=== PATIENT | female | born 1970 | race Caucasian/White ===

== ENCOUNTER 2021-04-17 13:24 | Emergency (ER) | payer OTHER ==
[~2021-04-17] VITALS: Ht 167.6 cm; Wt 80.4 kg
[2021-04-17 14:21] LABS: BILIRUBIN,URINE NEGATIVE (NEG); CLARITY,URINE CLEAR; COLOR,URINE YELLOW; NITRITE,URINE NEGATIVE (NEG); PH,URINE 6.5 (<5.0-8.0); PROTEIN,URINE NEGATIVE (NEG-TRACE)
[2021-04-17 14:33] LABS: BACTERIA,URINE FEW /HPF (0-FEW)
[2021-04-17] MEDS ORDERED: MORPHINE SULFATE 4 MG/ML VIAL. IV ONE (15:00)
[2021-04-17] MEDS ORDERED: ONDANSETRON PF 4 MG/2 ML VIAL. IVP ONE (15:00)
[2021-04-17 15:01] LABS: BASO % 0 % (0-3); EOS # 0.2 x10^3/uL (0.0-0.7); EOS % 2 % (0-3); HEMATOCRIT 40.7 % (36.0-47.0); HEMOGLOBIN 13.7 g/dL (12.0-15.5); LYMPH # 1.1 x10^3/uL (1.0-4.8); LYMPH % 14 % (24-48); MEAN CORPUSCULAR HEMOGLOBIN 30 pg (25-35); MEAN CORPUSCULAR HGB CONC 34 g/dL (31-37); MEAN CORPUSCULAR VOLUME 90 fL (79-100); MONO # 0.9 x10^3/uL (0.0-1.1); MONO % 12 % (0-9); NEUT # 5.6 x10^3/uL (1.8-7.7); NEUT % 71 % (31-73); PLATELET COUNT 244 x10^3/uL (140-400); RED BLOOD COUNT 4.52 x10^6/uL (3.50-5.40); RED CELL DISTRIBUTION WIDTH 13.9 % (11.5-14.5); WHITE BLOOD COUNT 7.9 x10^3/uL (4.0-11.0)
[2021-04-17 15:07] LABS: CALCIUM 8.5 mg/dL (8.5-10.1); CREATININE 0.8 mg/dL (0.6-1.0); GFR 75.9; POTASSIUM 3.9 mmol/L (3.5-5.1)
[2021-04-17 15:13] LABS: ALBUMIN 3.1 g/dL (3.4-5.0); ALBUMIN/GLOBULIN RATIO 0.8 (1.0-1.7); TOTAL BILIRUBIN 0.4 mg/dL (0.2-1.0); TOTAL PROTEIN 6.8 g/dL (6.4-8.2)
[2021-04-17] MEDS ORDERED: IOHEXOL 300 MG/ML 100ML VIAL. IV ONE (15:30)
[2021-04-17] MEDS ORDERED: CONTRAST GIVEN. MC PRN (15:30)
[2021-04-17] MEDS ORDERED: fentaNYL PF VIAL 100 MCG/2 ML VIAL IVP ONE ×3 (16:00→22:00)
--- NOTE | 2021-04-17 16:36 | RAD ---
Exam: CT abdomen/pelvis with intravenous contrast Indication: Abdominal pain Comparison: None Technique: Helical CT imaging performed of the abdomen and pelvis after the intravenous administratio n of 75 mL Omnipaque 300 contrast. Sagittal and coronal reformats were obtained. One or more of the following individualized dose reduction techniques were utilized for this examinat ion: 1. Automated exposure control 2. Adjustment of the mA and/or kV according to patient size 3. Use of iterative reconstruction technique. Findings: Lower chest: Lung bases are clear. Heart is normal in size. Liver: Normal. Gallbladder/Biliary Tree: Gallbladder surgically absent. Bile ducts are normal. Pancreas: Normal. Spleen: Normal. Adrenal Glands: Normal. Kidneys/Ureters/Bladder: Kidneys are normal in size and enhancement. No hydronephrosis. Ureters and b ladder are normal. Reproductive Organs: Uterus is surgically absent. No adnexal mass. Stomach, small bowel, and colon: There is a gastric lap band. The band appears either intragastric or intussuscepted along with the constricted portion of the stomach into the gastric fundus. There is n o definite free air around the stomach or gastric band. The proximal tubing extending from the band a ppears to course through a portion of the transverse colon (image [id number], series 2). Beyond this, ther e is soft tissue density extending along the tubing in the midabdomen (image [id number], series 2). There is a loop of small bowel immediately adjacent to the soft tissue abnormality in the right upper quadr ant that is abnormal in appearance with wall thickening and hypoattenuation (image 40-56 series 2 and image 38-44 series 5). There is no small bowel obstruction. No definite pneumatosis or pneumoperiton eum. Small bowel colon are otherwise unremarkable in appearance. Vasculature: Abdominal aorta is normal in caliber. Lymph Nodes: No lymphadenopathy. Peritoneum and retroperitoneum: No free fluid or free air. Bones: Mild degenerative disc disease at L4-L5. Impression: Surgical changes of gastric lap band with abnormal appearance of the band and tubing. The gastric band itself appears to be intragastric or intussuscepted along with the constricted portion of the stomach into the gastric fundus. The proximal tubing appears to extend through a portion of th e transverse colon. Beyond this, there is soft tissue density extending along the tubing. There is an an abnormal loop of small bowel with wall thickening immediately adjacent to the soft tissue abnorma lity in the right upper quadrant. No pneumatosis or pneumoperitoneum. No bowel obstruction. Recommend surgical consultation for further evaluation and management of the gastric lap band tubing. FOR INTERNAL CODING PURPOSES Critical result: Findings discussed with Dr. Langston at 04/17/2021 4:17 PM. RESULT CODE: (C) 1. Electronically signed by: Deb Otoole MD (04/17/2021 4:33 PM) [id number]
--- NOTE | 2021-04-17 16:47 | PHYS DOC ---
Past Medical History Past Medical History: No Pertinent History Past Surgical History: Cholecystectomy, , Other Additional Past Surgical Histo: Lap band 2008, D&C Smoking Status: Never Smoker Alcohol Use: None General Adult EDM: Chief Complaint: ABDOMINAL PAIN HPI: HPI: Patient is a 50 year old female who presented to ER for evaluation of epigastric abdominal pain with nausea vomiting and some diarrhea since Friday. Patient described the pain as cramping in nature severe rated 10 out of 10. Patient has history of lap band was done in [address] Santana at [facility]. Patient states she had problem with her lap band before. Patient denies any cough or fever. Patient said she feels her belly distended Review of Systems: Review of Systems: Constitutional: Denies fever or chills. [] Eyes: Denies change in visual acuity. [] HENT: Denies nasal congestion or sore throat. [] Respiratory: Denies cough or shortness of breath. [] Cardiovascular: Denies chest pain or edema. [] GI: Positive for abdominal pain with nausea vomiting and diarrhea. : Denies dysuria. [] Musculoskeletal: Denies back pain or joint pain. [] Integument: Denies rash. [] Neurologic: Denies headache, focal weakness or sensory changes. [] Endocrine: Denies polyuria or polydipsia. [] Lymphatic: Denies swollen glands. [] Psychiatric: Denies depression or anxiety. [] Heart Score: C/O Chest Pain: N/A Risk Factors: Risk Factors: DM, Current or recent (<one month) smoker, HTN, HLP, family history of CAD, obesity. Risk Scores: Score 0 - 3: 2.5% MACE over next 6 weeks - Discharge Home Score 4 - 6: 20.3% MACE over next 6 weeks - Admit for Clinical Observation Score 7 - 10: 72.7% MACE over next 6 weeks - Early Invasive Strategies Current Medications: Current Medications Medications (Trade) Dose Ordered Sig/Mane Start Time Stop Time Status Last Admin Dose Admin Fentanyl Citrate (Fentanyl 2ml Vial) 100 mcg 1X ONCE 04/17/21 16:00 04/17/21 16:02 DC 04/17/21 16:21 100 MCG Info (CONTRAST GIVEN -- Rx MONITORING) 1 each PRN DAILY PRN 04/17/21 15:30 04/19/21 15:29 Iohexol (Omnipaque 300 Mg/ml) 75 ml 1X ONCE 04/17/21 15:30 04/17/21 15:31 DC 04/17/21 15:22 75 ML Morphine Sulfate (Morphine Sulfate) 4 mg 1X ONCE 04/17/21 15:00 04/17/21 15:01 DC 04/17/21 15:18 4 MG Ondansetron HCl (Zofran) 4 mg 1X ONCE 04/17/21 15:00 04/17/21 15:01 DC 04/17/21 15:17 4 MG Allergies: Allergies: Allergies Coded Allergies Type Severity Reaction Last Updated Verified No Known Drug Allergies 04/17/21 No Physical Exam: PE: Constitutional: Well developed, well nourished, no acute distress, non-toxic appearance. [] HENT: Normocephalic, atraumatic, bilateral external ears normal, oropharynx moist, no oral exudates, nose normal. [] Eyes: PERRLA, EOMI, conjunctiva normal, no discharge. [] Neck: Normal range of motion, no tenderness, supple, no stridor. [] Cardiovascular:Heart rate regular rhythm, no murmur [] Lungs & Thorax: Bilateral breath sounds clear to auscultation [] Abdomen: Bowel sounds normal, there is diffuse tenderness to palpation, mildly distended, no masses, no pulsatile masses. [] Skin: Warm, dry, no erythema, no rash. [] Back: No tenderness, no CVA tenderness. [] Extremities: No tenderness, no cyanosis, no clubbing, ROM intact, no edema. [] Neurologic: Alert and oriented X 3, normal motor function, normal sensory function, no focal deficits noted. [] Psychologic: Affect normal, judgement normal, mood normal. [] Current Patient Data: Labs: Laboratory Tests Test 04/17/21 13:51 04/17/21 14:51 Urine Collection Type Void Urine Color Yellow Urine Clarity Clear Urine pH 6.5 (<5.0-8.0) Urine Specific [place] 1.025 (1.000-1.030) Urine Protein Negative mg/dL (NEG-TRACE) Urine Glucose (UA) Negative mg/dL (NEG) Urine Ketones (Stick) 15 mg/dL (NEG) Urine Blood Trace (NEG) Urine Nitrite Negative (NEG) Urine Bilirubin Negative (NEG) Urine Urobilinogen Dipstick 1.0 mg/dL (0.2 mg/dL) Urine Leukocyte Esterase Negative (NEG) Urine RBC 6-10 /HPF (0-2) Urine WBC 1-4 /HPF (0-4) Urine Squamous Epithelial Cells Few /LPF Urine Bacteria Few /HPF (0-FEW) Urine Mucus Slight /LPF White Blood Count 7.9 x10^3/uL (4.0-11.0) Red Blood Count 4.52 x10^6/uL (3.50-5.40) Hemoglobin 13.7 g/dL (12.0-15.5) Hematocrit 40.7 % (36.0-47.0) Mean Corpuscular Volume 90 fL (79-100) Mean Corpuscular Hemoglobin 30 pg (25-35) Mean Corpuscular Hemoglobin Concent 34 g/dL (31-37) Red Cell Distribution Width 13.9 % (11.5-14.5) Platelet Count 244 x10^3/uL (140-400) Neutrophils (%) (Auto) 71 % (31-73) Lymphocytes (%) (Auto) 14 % (24-48) L Monocytes (%) (Auto) 12 % (0-9) H Eosinophils (%) (Auto) 2 % (0-3) Basophils (%) (Auto) 0 % (0-3) Neutrophils # (Auto) 5.6 x10^3/uL (1.8-7.7) Lymphocytes # (Auto) 1.1 x10^3/uL (1.0-4.8) Monocytes # (Auto) 0.9 x10^3/uL (0.0-1.1) Eosinophils # (Auto) 0.2 x10^3/uL (0.0-0.7) Basophils # (Auto) 0.0 x10^3/uL (0.0-0.2) Sodium Level 141 mmol/L (136-145) Potassium Level 3.9 mmol/L (3.5-5.1) Chloride Level 106 mmol/L (98-107) Carbon Dioxide Level 28 mmol/L (21-32) Anion Gap 7 (6-14) Blood Urea Nitrogen 11 mg/dL (7-20) Creatinine 0.8 mg/dL (0.6-1.0) Estimated GFR (Cockcroft-Gault) 75.9 BUN/Creatinine Ratio 14 (6-20) Glucose Level 67 mg/dL (70-99) L Calcium Level 8.5 mg/dL (8.5-10.1) Magnesium Level 2.0 mg/dL (1.8-2.4) Total Bilirubin 0.4 mg/dL (0.2-1.0) Aspartate Amino Transferase (AST) 17 U/L (15-37) Alanine Aminotransferase (ALT) 27 U/L (14-59) Alkaline Phosphatase 56 U/L (46-116) Total Protein 6.8 g/dL (6.4-8.2) Albumin 3.1 g/dL (3.4-5.0) L Albumin/Globulin Ratio 0.8 (1.0-1.7) L Lipase 64 U/L (73-393) L Laboratory Tests 04/17/21 14:51 Laboratory Tests 04/17/21 14:51 Vital Signs: Vital Signs Date Time Temp Pulse Resp B/P (MAP) Pulse Ox O2 Delivery O2 Flow Rate FiO2 04/17/21 16:21 18 99 Room Air 04/17/21 14:00 99.0 73 128/59 (82) 99.0 EKG: EKG: [] Radiology/Procedures: Radiology/Procedures: [][facility] [address], [place] [id number] IMAGING REPORT Signed PATIENT: SUSHIL COBB ACCOUNT: [id number] : 1970 LOCATION: ER AGE: 50 SEX: F EXAM STATUS: REG ER ORD. PHYSICIAN: WILL GARCIA DO REASON: ABDOMINAL PAIN PROCEDURE: CT ABD PELV W/ IV CONTRST ONLY Exam: CT abdomen/pelvis with intravenous contrast Indication: Abdominal pain Comparison: None Technique: Helical CT imaging performed of the abdomen and pelvis after the intravenous administration of 75 mL Omnipaque 300 contrast. Sagittal and coronal reformats were obtained. One or more of the following individualized dose reduction techniques were utilized for this examination: 1. Automated exposure control 2. Adjustment of the mA and/or kV according to patient size 3. Use of iterative reconstruction technique. Findings: Lower chest: Lung bases are clear. Heart is normal in size. Liver: Normal. Gallbladder/Biliary Tree: Gallbladder surgically absent. Bile ducts are normal. Pancreas: Normal. Spleen: Normal. Adrenal Glands: Normal. Kidneys/Ureters/Bladder: Kidneys are normal in size and enhancement. No hydronephrosis. Ureters and bladder are normal. Reproductive Organs: Uterus is surgically absent. No adnexal mass. Stomach, small bowel, and colon: There is a gastric lap band. The band appears either intragastric or intussuscepted along with the constricted portion of the stomach into the gastric fundus. There is no definite free air around the stomach or gastric band. The proximal tubing extending from the band appears to course through a portion of the transverse colon (image 25-33, series 2). Beyond this, there is soft tissue density extending along the tubing in the midabdomen (image 42-49, series 2). There is a loop of small bowel immediately adjacent to the soft tissue abnormality in the right upper quadrant that is abnormal in appearance with wall thickening and hypoattenuation (image 40-56 series 2 and image 38-44 series 5). There is no small bowel obstruction. No definite pneumatosis or pneumoperitoneum. Small bowel colon are otherwise unremarkable in appearance. Vasculature: Abdominal aorta is normal in caliber. Lymph Nodes: No lymphadenopathy. Peritoneum and retroperitoneum: No free fluid or free air. Bones: Mild degenerative disc disease at L4-L5. Impression: Surgical changes of gastric lap band with abnormal appearance of the band and tubing. The gastric band itself appears to be intragastric or intussuscepted along with the constricted portion of the stomach into the amanda jules fundus. The proximal tubing appears to extend through a portion of the transverse colon. Beyond this, there is soft tissue density extending along the tubing. There is an an abnormal loop of small bowel with wall thickening immediately adjacent to the soft tissue abnormality in the right upper quadrant. No pneumatosis or pneumoperitoneum. No bowel obstruction. Recommend surgical consultation for further evaluation and management of the gastric lap band tubing. FOR INTERNAL CODING PURPOSES Critical result: Findings discussed with Dr. Garcia at 04/17/2021 4:17 PM. RESULT CODE: (C) 1. Electronically signed by: Deb Otoole MD (04/17/2021 4:33 PM) [id number] DICTATED and SIGNED BY: DEB OTOOLE MD DATE: 04/17/21 [id number] Course & Med Decision Making: Course & Med Decision Making Pertinent Labs and Imaging studies reviewed. (See chart for details) Patient is a 50-year-old female who presented to ER due to abdominal pain with nausea vomiting. Patient has history of lap band in 2007. CT scan of her abdomen pelvic show some abnormality in the lap band area. Discussed with the general surgeon on-call Dr. Leeroy Case who recommended patient to be transferred to [facility] where the bariatric surgery available, Discussed with the hospitalist there, Dr. DENTON who agreed to accept patient for transfer there. Kayli Disclaimer: Kayli Disclaimer: This electronic medical record was generated, in whole or in part, using a voice recognition dictation system. Departure Departure Impression: Primary Impression: Abdominal pain Additional Impressions: Nausea & vomiting Hx of laparoscopic gastric banding Disposition: 02 SHORT TERM HOSPITAL (Transferred to [facility], ACCEPTED BY DR. DENTON, HOSPITALIST. ) Referrals: CHRISTIAN NERI DO (PCP) WILL GARCIA DO Apr 17, 2021 16:47
[2021-04-17 22:30] VITALS: BP 165/77
== END 2021-04-17 21:30 | disposition short-term general hospital (02) ==
LOC: ER 13:24
DX: R10.13 Epigastric pain (principal); R11.2 Nausea with vomiting, unspecified; Z98.84 Bariatric surgery status; R19.7 Diarrhea, unspecified; Z90.49 Acquired absence of other specified parts of digestive tract
CPT/HCPCS: 36415; 74177; 80053; 81001; 83690; 83735; 85025; 96374; 96375; 96376; 99285; J2270; J2405; J3010; Q9967